=== PATIENT | male | born 1955 | race Caucasian/White ===

== ENCOUNTER → 2019-02-22 | Outpatient (REF) | LOC: M LAB LCGH 15:12 | PROVIDERS: ATTEND Surgery | DX: R19.5 Other fecal abnormalities (principal) ==

== ENCOUNTER 2023-03-13 10:21 | Day surgery (SDC) | payer MEDICARE ==
[~2023-03-13] VITALS: Ht 165.1 cm; Wt 81.1 kg
[~2023-03-13 10:21] MED LIST: ALLO100T PO; AMLO5CAP53 PO; BSS IRRIG/VANCO(10MG)/TOBRA(5MG)/EPINEPH(1:1000-0.5CC)500ML BAG-ORONLY IR ONE; CEFUROXIME 1MG/0.1ML INTRACAMERAL INJ As Ordered ONE; CYCLOPENTOLATE 1% OPHTH SOLN 2ML BTL OD SCH; LIDOCAINE 1% SDV 5ML VIAL As Ordered ONE; LIDOCAINE 3.5 % 1ML OPHTH TOPICAL GEL OU ONE; METF750T36 PO; MIDAZOLAM INJ 2MG/2ML VIAL As Ordered ONE; OFLOXACIN 0.3 % (OCUFLOX) OPTH SOL 5ML OD ONE; PHENYLEPHRINE 10% OPHTH SOL 5ML OD PRN; PHENYLEPHRINE 2.5% OPHTH SOL 2ML OD SCH; ROSU5TAB5 PO; TROPICAMIDE 1% OPHTH SOLN 15ML OD SCH; fentaNYL 100 MCG/2 ML INJECTION As Ordered ONE
[2023-03-13] MEDS ORDERED: VITMTA PO (11:09)
[2023-03-13] MEDS ORDERED: MV-M1CAP8 PO (11:09)
[2023-03-13] MEDS ORDERED: D400400C PO (11:09)
[2023-03-13] MEDS ORDERED: ZINC100T3 PO (11:09)
[2023-03-13 12:26] VITALS: BP 156/80; TEMP 97.1; O2SAT 97
== END 2023-03-13 12:52 | disposition home or self-care (01) ==
LOC: M SDC 10:21
PROVIDERS: ATTEND Ophthalmology
DX: E11.36 Type 2 diabetes mellitus with diabetic cataract (principal); H25.11 Age-related nuclear cataract, right eye; I10 Essential (primary) hypertension; E78.00 Pure hypercholesterolemia, unspecified; M10.9 Gout, unspecified; Z79.899 Other long term (current) drug therapy; Z79.84 Long term (current) use of oral hypoglycemic drugs
CPT/HCPCS: 66984; J0697; J2250; J3010; V2632

== ENCOUNTER 2023-03-27 07:55 | Day surgery (SDC) | payer MEDICARE ==
[~2023-03-27] VITALS: Ht 165.1 cm; Wt 82.3 kg
[~2023-03-27 07:55] MED LIST changes: -CYCLOPENTOLATE 1% OPHTH SOLN 2ML BTL OD SCH; +CYCLOPENTOLATE 1% OPHTH SOLN 2ML BTL OS SCH; +D400400C PO; -MIDAZOLAM INJ 2MG/2ML VIAL As Ordered ONE; +MV-M1CAP8 PO; -OFLOXACIN 0.3 % (OCUFLOX) OPTH SOL 5ML OD ONE; +OFLOXACIN 0.3 % (OCUFLOX) OPTH SOL 5ML OS ONE; -PHENYLEPHRINE 10% OPHTH SOL 5ML OD PRN; +PHENYLEPHRINE 10% OPHTH SOL 5ML OS PRN; -PHENYLEPHRINE 2.5% OPHTH SOL 2ML OD SCH; +PHENYLEPHRINE 2.5% OPHTH SOL 2ML OS SCH; -TROPICAMIDE 1% OPHTH SOLN 15ML OD SCH; +TROPICAMIDE 1% OPHTH SOLN 15ML OS SCH; +VITMTA PO; +ZINC100T3 PO; -fentaNYL 100 MCG/2 ML INJECTION As Ordered ONE
[2023-03-27] MEDS ORDERED: MIDAZOLAM INJ 2MG/2ML VIAL As Ordered ONE (09:07)
[2023-03-27] MEDS ORDERED: fentaNYL 100 MCG/2 ML INJECTION As Ordered ONE (09:07)
[2023-03-27 10:50] VITALS: BP 141/74; TEMP 98.8; O2SAT 98
== END 2023-03-27 10:54 | disposition home or self-care (01) ==
LOC: M SDC 07:55
PROVIDERS: ATTEND Ophthalmology
DX: E11.36 Type 2 diabetes mellitus with diabetic cataract (principal); H25.12 Age-related nuclear cataract, left eye; I10 Essential (primary) hypertension; E78.00 Pure hypercholesterolemia, unspecified; Z79.84 Long term (current) use of oral hypoglycemic drugs; Z79.899 Other long term (current) drug therapy; M10.9 Gout, unspecified; Z90.49 Acquired absence of other specified parts of digestive tract
CPT/HCPCS: 66984; J0697; J2250; J3010; V2632